=== PATIENT | male | born 1965 | race African-American/Black ===

== ENCOUNTER 2019-06-12 19:50 | Emergency (ER) | payer OTHER ==
--- NOTE | 2019-06-12 20:02 | PDOC ---
Rapid Medical Evaluation Time Seen by Provider: 06/12/19 19:59 Medical Evaluation: Allergies Allergy/AdvReac Type Severity Reaction Status Date / Time No Known Allergies Allergy Verified 07/28/13 09:43 06/12/19 20:00 HPI: 7 Months s/p TURP with L testicle pain x2 days PE: Normal external genitalia ORDERS: US Discharge Disposition - Diagnosis Testicle pain - Referrals - Patient Instructions - Post Discharge Activity
[2019-06-12 20:13] VITALS: BMI 32.5
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
[2019-06-12] MEDS ORDERED: ACETAMINOPHEN 325 MG TABLET (FP) PO ONE (21:56)
[2019-06-12] MEDS ORDERED: IBUPROFEN 600 MG TABLET (FP) PO ONE ×2 (21:56→22:00)
[2019-06-12] MEDS ORDERED: ACETAMINOPHEN 325 MG TABLET (FP) ONE (22:00)
[2019-06-12 22:24] LABS: EPI CELLS 5.7 /HPF (0-5/HPF); HYALINE CASTS 44 /lpf (0-8); URINE APPEARANCE CLEAR; URINE BACTERIA 2.2 /hpf (NEGATIVE); URINE BILIRUBIN NEGATIVE (NEGATIVE); URINE COLOR YELLOW; URINE GLUCOSE (UA) NEGATIVE (NEGATIVE); URINE KETONE NEGATIVE (NEGATIVE); URINE LEUK ESTERASE 2+ (NEGATIVE); URINE NITRITE NEGATIVE (NEGATIVE); URINE PROTEIN NEGATIVE (NEGATIVE); URINE RBC 2 /hpf (0-4); URINE UROBILINOGEN 0.2 mg/dL (0.2-1.0); URINE WBC 70 /hpf (0-5)
[2019-06-12] MEDS ORDERED: DOXYCYCLINE HYCLATE 100 MG CAPSULE PO ONE ×2 (22:57→23:47)
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
[2019-06-12] MEDS ORDERED: cefTRIAXone SODIUM 1 GM VIAL ONE (23:47)
[2019-06-12 23:58] VITALS: BP 178/76; PULSE 89; TEMP 98.4
== END 2019-06-12 23:57 | disposition home or self-care (01) ==
LOC: JER 19:50
DX: N45.1 Epididymitis (principal); I10 Essential (primary) hypertension
CPT/HCPCS: 36415; 76870-TC; 81003; 87086; 87491; 87591; 99282-25